=== PATIENT | female | born 1985 | race Caucasian/White ===

== ENCOUNTER 2016-11-02 18:28 | Emergency (ER) | payer MEDICAID, OTHER ==
[2016-11-02] MEDS ORDERED: NORMAL SALINE 1000 ML 1,000 ML IV PRN (22:14)
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
[2016-11-02 22:41] LABS: APPEARANCE,URINE CLOUDY; BILIRUBIN,URINE NEGATIVE (NEGATIVE); GLUCOSE, URINE NEGATIVE (NEGATIVE); KETONES,URINE NEGATIVE (NEGATIVE); LEUKOCYTE ESTERASE,URINE TRACE (NEGATIVE); NITRITE,URINE NEGATIVE (NEGATIVE); PROTEIN,URINE NEGATIVE (NEGATIVE); URINE SPECIFIC GRAVITY 1.019
[2016-11-02 23:03] LABS: ABSOLUTE BASOPHILS # (AUTO) 0.1 10^3/uL (0.0-0.2); ABSOLUTE EOSINOPHILS # (AUTO) 0.1 10^3/uL (0.0-0.6); ABSOLUTE LYMPHOCYTES (AUTO) 2.7 10^3/uL (0.5-4.7); ABSOLUTE MONOCYTES (AUTO) 0.8 10^3/uL (0.1-1.4); ABSOLUTE NEUT (AUTO) 6.8 10^3/uL (1.7-8.2); BASOPHILS % (AUTO) 0.7 % (0-2); EOSINOPHILS % (AUTO) 0.9 % (0-6); HEMATOCRIT 43.4 % (36.0-47.0); HEMOGLOBIN 14.8 g/dL (12.0-15.5); LYMPHOCYTES % (AUTO) 25.7 % (13-45); MEAN CORPUSCULAR HEMOGLOBIN 30.8 pg (27.0-33.4); MEAN CORPUSCULAR HGB CONC 34.1 g/dL (32.0-36.0); MEAN CORPUSCULAR VOLUME 90 fl (80-97); RED BLOOD COUNT 4.81 10^6/uL (3.72-5.28); RED CELL DISTRIBUTION WIDTH 13.5 % (11.5-14.0); SEGMENTED NEUTROPHILS % (AUTO) 64.7 % (42-78); WHITE BLOOD COUNT 10.4 10^3/uL (4.0-10.5)
[2016-11-02 23:25] LABS: ALANINE AMINOTRANSFERASE 26 U/L (9-52); ALBUMIN 4.2 g/dL (3.5-5.0); ALKALINE PHOSPHATASE 50 U/L (38-126); ANION GAP 11 (5-19); ASPARTATE AMINO TRANSFERASE 20 U/L (14-36); BILIRUBIN,TOTAL 0.4 mg/dL (0.2-1.3); BLOOD UREA NITROGEN 13 mg/dL (7-20); CALCIUM 9.4 mg/dL (8.4-10.2); CARBON DIOXIDE 25 mmol/L (22-30); CHLORIDE 106 mmol/L (98-107); CREATININE RESULT 0.69 mg/dL (0.52-1.25); GLUCOSE 78 mg/dL (75-110); POTASSIUM 3.8 mmol/L (3.6-5.0); SODIUM 141.8 mmol/L (137-145); TOTAL PROTEIN 6.6 g/dL (6.3-8.2)
[2016-11-02] MEDS ORDERED: KETOROLAC TROMETHAMINE INJ/PF 30 MG/1 ML SDV IV ONE (23:32)
[2016-11-03 01:19] VITALS: BP 115/88
== END 2016-11-03 01:19 | disposition home or self-care (01) ==
LOC: ER 18:28
DX: N39.0 Urinary tract infection, site not specified (principal); R10.9 Unspecified abdominal pain; I10 Essential (primary) hypertension; J45.909 Unspecified asthma, uncomplicated; F17.200 Nicotine dependence, unspecified, uncomplicated
CPT/HCPCS: 99284; 96361; 96374; 36415; 85025; 81025; 80053; 81001; 76380; J1885; J7030

== ENCOUNTER 2017-01-25 14:07 | Emergency (ER) | payer MEDICAID ==
[2017-01-25 14:23] VITALS: BP 94/76
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
[2017-01-25 15:24] LABS: ABSOLUTE EOSINOPHILS # (AUTO) 0.1 10^3/uL (0.0-0.6); ABSOLUTE LYMPHOCYTES (AUTO) 2.6 10^3/uL (0.5-4.7); ABSOLUTE MONOCYTES (AUTO) 0.6 10^3/uL (0.1-1.4); ABSOLUTE NEUT (AUTO) 4.6 10^3/uL (1.7-8.2); BASOPHILS % (AUTO) 0.6 % (0-2); EOSINOPHILS % (AUTO) 1.7 % (0-6); HEMATOCRIT 44.5 % (36.0-47.0); HEMOGLOBIN 15.7 g/dL (12.0-15.5); HGB HCT DIFFERENCE 2.6; LYMPHOCYTES % (AUTO) 32.3 % (13-45); MEAN CORPUSCULAR HEMOGLOBIN 31.3 pg (27.0-33.4); MEAN CORPUSCULAR HGB CONC 35.2 g/dL (32.0-36.0); MEAN CORPUSCULAR VOLUME 89 fl (80-97); MONOCYTES % (AUTO) 7.7 % (3-13); RED CELL DISTRIBUTION WIDTH 13.1 % (11.5-14.0); SEGMENTED NEUTROPHILS % (AUTO) 57.7 % (42-78); WHITE BLOOD COUNT 7.9 10^3/uL (4.0-10.5)
[2017-01-25 15:28] LABS: APPEARANCE,URINE CLOUDY; BILIRUBIN,URINE SMALL (NEGATIVE); GLUCOSE, URINE NEGATIVE (NEGATIVE); KETONES,URINE NEGATIVE (NEGATIVE); LEUKOCYTE ESTERASE,URINE TRACE (NEGATIVE); NITRITE,URINE NEGATIVE (NEGATIVE); PROTEIN,URINE 30 mg/dL (NEGATIVE); URINE SPECIFIC GRAVITY 1.032
[2017-01-25 15:34] LABS: ALANINE AMINOTRANSFERASE 34 U/L (9-52); ALBUMIN 4.4 g/dL (3.5-5.0); ALKALINE PHOSPHATASE 61 U/L (38-126); ANION GAP 11 (5-19); ASPARTATE AMINO TRANSFERASE 24 U/L (14-36); BILIRUBIN,DIRECT 0.1 mg/dL (0.0-0.4); BILIRUBIN,TOTAL 0.5 mg/dL (0.2-1.3); BLOOD UREA NITROGEN 13 mg/dL (7-20); CALCIUM 10.1 mg/dL (8.4-10.2); CARBON DIOXIDE 30 mmol/L (22-30); CHLORIDE 103 mmol/L (98-107); CREATININE RESULT 0.92 mg/dL (0.52-1.25); GLUCOSE 78 mg/dL (75-110); LIPASE 145.1 U/L (23-300); POTASSIUM 4.2 mmol/L (3.6-5.0); SODIUM 144.2 mmol/L (137-145); TOTAL PROTEIN 7.3 g/dL (6.3-8.2)
[2017-01-25] MEDS ORDERED: ONDANSETRON 4 MG TAB.RAPDIS PO ONE (16:56)
[2017-01-25] MEDS ORDERED: ACETAMINOPHEN 325 MG TABLET PO ONE (16:56)
== END 2017-01-25 18:55 | disposition left against medical advice (07) ==
LOC: ER 14:07
DX: Z53.9 Procedure and treatment not carried out, unspecified reason (principal); R10.9 Unspecified abdominal pain
CPT/HCPCS: 99281; 36415; 84702; 83690; 85025; 80053; 81001; J3490; S0119

== ENCOUNTER 2017-01-30 15:36 | Emergency (ER) | payer MEDICAID ==
[2017-01-30] MEDS ORDERED: LIDOCAINE 5% (700 MG) TRANSDERMAL ADH..PATCH TP ONE (16:41)
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
[2017-01-30 17:06] LABS: ABSOLUTE EOSINOPHILS # (AUTO) 0.1 10^3/uL (0.0-0.6); ABSOLUTE LYMPHOCYTES (AUTO) 2.6 10^3/uL (0.5-4.7); ABSOLUTE MONOCYTES (AUTO) 0.7 10^3/uL (0.1-1.4); ABSOLUTE NEUT (AUTO) 4.1 10^3/uL (1.7-8.2); BASOPHILS % (AUTO) 0.6 % (0-2); EOSINOPHILS % (AUTO) 1.5 % (0-6); HEMATOCRIT 43.9 % (36.0-47.0); HEMOGLOBIN 14.9 g/dL (12.0-15.5); HGB HCT DIFFERENCE 0.8; LYMPHOCYTES % (AUTO) 34.9 % (13-45); MEAN CORPUSCULAR HEMOGLOBIN 30.3 pg (27.0-33.4); MEAN CORPUSCULAR HGB CONC 33.9 g/dL (32.0-36.0); MEAN CORPUSCULAR VOLUME 90 fl (80-97); MONOCYTES % (AUTO) 9.4 % (3-13); RED CELL DISTRIBUTION WIDTH 13.5 % (11.5-14.0); SEGMENTED NEUTROPHILS % (AUTO) 53.6 % (42-78); WHITE BLOOD COUNT 7.6 10^3/uL (4.0-10.5)
[2017-01-30 17:22] LABS: ALANINE AMINOTRANSFERASE 29 U/L (9-52); ALBUMIN 4.3 g/dL (3.5-5.0); ALKALINE PHOSPHATASE 48 U/L (38-126); ANION GAP 12 (5-19); ASPARTATE AMINO TRANSFERASE 22 U/L (14-36); BILIRUBIN,DIRECT 0.2 mg/dL (0.0-0.4); BILIRUBIN,TOTAL 0.5 mg/dL (0.2-1.3); BLOOD UREA NITROGEN 12 mg/dL (7-20); CALCIUM 9.5 mg/dL (8.4-10.2); CARBON DIOXIDE 25 mmol/L (22-30); CHLORIDE 109 mmol/L (98-107); CREATININE RESULT 0.68 mg/dL (0.52-1.25); GLUCOSE 81 mg/dL (75-110); LIPASE 216.2 U/L (23-300); MAGNESIUM 2.2 mg/dL (1.6-2.3); POTASSIUM 4.3 mmol/L (3.6-5.0); SODIUM 145.7 mmol/L (137-145)
[2017-01-30] MEDS ORDERED: OXYCODONE-ACETAMINOPHEN 5-325 MG TABLET PO ONE (18:34)
[2017-01-30] MEDS ORDERED: KETOROLAC TROMETHAMINE 60 MG/2 ML SDV IM ONE (18:34)
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
[2017-01-30 18:57] VITALS: BP 115/74
== END 2017-01-30 19:00 | disposition home or self-care (01) ==
LOC: ER 15:36
DX: M25.551 Pain in right hip (principal); G89.29 Other chronic pain; M54.5 Low back pain
CPT/HCPCS: 99284; 96372; 36415; 83690; 83735; 84703; 85025; 80053; J1885; J3490

== ENCOUNTER 2017-06-22 07:09 | Emergency (ER) | payer MEDICAID ==
[2017-06-22 07:28] VITALS: BP 104/67
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
== END 2017-06-22 07:45 | disposition home or self-care (01) ==
LOC: ER 07:09
DX: O99.519 Diseases of the respiratory system complicating pregnancy, unspecified trimester (principal); J06.9 Acute upper respiratory infection, unspecified; B97.89 Other viral agents as the cause of diseases classified elsewhere; J02.9 Acute pharyngitis, unspecified; J34.89 Other specified disorders of nose and nasal sinuses; O99.619 Diseases of the digestive system complicating pregnancy, unspecified trimester; K12.0 Recurrent oral aphthae; O26.899 Other specified pregnancy related conditions, unspecified trimester; R09.81 Nasal congestion; Z3A.00 Weeks of gestation of pregnancy not specified
CPT/HCPCS: 99282

== ENCOUNTER 2017-08-03 14:36 | Outpatient (CLI) | payer MEDICAID ==
[2017-08-03 15:52] LABS: APPEARANCE,URINE SLIGHTLY-CLOUDY; BILIRUBIN,URINE NEGATIVE (NEGATIVE); GLUCOSE, URINE NEGATIVE (NEGATIVE); KETONES,URINE NEGATIVE (NEGATIVE); LEUKOCYTE ESTERASE,URINE NEGATIVE (NEGATIVE); NITRITE,URINE NEGATIVE (NEGATIVE); PROTEIN,URINE NEGATIVE (NEGATIVE); URINE SPECIFIC GRAVITY 1.013; UROBILINOGEN,URINE NEGATIVE mg/dL (<2.0)
[2017-08-03 16:11] LABS: URINE BARBITURATES SCREEN NEGATIVE; URINE METHADONE SCREEN NEGATIVE; URINE OPIATES LOW NEGATIVE; URINE PHENCYCLIDINE SCREEN NEGATIVE
--- NOTE | 2017-08-03 17:00 | RADIOLOGY REPORT (SQ) ---
EXAM DESCRIPTION: U/S OB LIMITED COMPLETED DATE/TIME: 08/03/2017 4:49 pm REASON FOR STUDY: Cervical length, 33+ 3 weeks, ? labor COMPARISON: None. TECHNIQUE: Limited transabdominal grayscale ultrasound for evaluation of specific requested obstetri michael parameters. LIMITATIONS: None. FINDINGS: Very mild upper cervical funneling at the internal os. Remainder of the cervix is closed, 3.2 cm in length. Single fetus breech orientation, cardiac activity 125 beats per minute IMPRESSION: Very mild upper cervical funneling. Cervix 3.2 cm in length Trimester of : Third trimester - 28 weeks to delivery. TECHNICAL DOCUMENTATION: JOB ID: [id number] [employer]- All Rights Reserved
[2017-08-03 17:28] LABS: CHLAM PCR NOT DETECTED (NOT DETECT)
== END 2017-08-03 17:48 | disposition home or self-care (01) ==
LOC: LC 14:36
PROVIDERS: ATTEND Student in an Organized Health Care Education/Training Program
PROC: 4A1HXCZ Monitoring of Products of Conception, Cardiac Rate, External Approach (ICD-10-PCS; principal; 2017-08-03)
DX: O47.03 False labor before 37 completed weeks of gestation, third trimester (principal); Z3A.33 33 weeks gestation of pregnancy
CPT/HCPCS: 59025; 76815; 80307; 81001; 82731; 87081; 87086; 87210; 87491; 87591

== ENCOUNTER 2017-08-30 13:46 | Outpatient (CLI) | payer MEDICAID ==
--- NOTE | 2017-08-30 13:54 | Non Stress Test Report ---
Non Stress Test Datetime Report Generated by CPN: 08/30/2017 13:54 DEMOGRAPHIC EGA NST: 29.0 INDICATION Indication for Study: Other Indication for Study (NST) Other: Labor check MONITORING Monitor Explained: Monitor Explained; Test Explained; Patient Verbalized Understanding Time on Monitor: 08/03/2017 16:45 Time off Monitor: 08/03/2017 17:41 NST Duration: 56 NST INTERVENTIONS NST Interventions: PO Hydration Physician Notified NST: K. Willingham MD BABY A: [id number] BABY A Movement : Present Contraction Frequency : 0 FHR Baseline : 130 Accelerations : 15X15 Decelerations : None Variability : Moderate 6-25bpm NST Review: Meets Criteria for Reactive NST NST Review and Verified By : Ulices Bellavance RNC NST Results: Reactive NST REPORT Report Trigger: Send Report
[2017-08-30 14:19] LABS: APPEARANCE,URINE CLEAR; BILIRUBIN,URINE NEGATIVE (NEGATIVE); GLUCOSE, URINE NEGATIVE (NEGATIVE); KETONES,URINE 20 mg/dL (NEGATIVE); LEUKOCYTE ESTERASE,URINE NEGATIVE (NEGATIVE); NITRITE,URINE NEGATIVE (NEGATIVE); PROTEIN,URINE NEGATIVE (NEGATIVE); URINE SPECIFIC GRAVITY 1.004; UROBILINOGEN,URINE NEGATIVE mg/dL (<2.0)
[2017-08-30 15:06] LABS: AMNISURE (ROM) NEGATIVE (NEGATIVE)
[2017-08-30 15:07] LABS: URINE BARBITURATES SCREEN NEGATIVE; URINE METHADONE SCREEN NEGATIVE; URINE OPIATES LOW NEGATIVE; URINE PHENCYCLIDINE SCREEN NEGATIVE
--- NOTE | 2017-08-30 15:36 | Non Stress Test Report ---
Non Stress Test Datetime Report Generated by CPN: 08/30/2017 15:36 DEMOGRAPHIC EGA NST: 32.6 INDICATION Indication for Study: Ordered by Provider MONITORING Monitor Explained: Monitor Explained; Test Explained; Patient Verbalized Understanding Time on Monitor: 08/30/2017 14:11 Time off Monitor: 08/30/2017 14:49 NST Duration: 38 NST INTERVENTIONS NST Interventions: PO Hydration; Reposition Patient Physician Notified NST: P Garrett CNM BABY A Movement : Present Contraction Frequency : Irritability FHR Baseline : 125 Accelerations : 15X15 Decelerations : None Variability : Moderate 6-25bpm NST Review: Meets Criteria for Reactive NST NST Review and Verified By : Amarjit Self RNC NST Results: Reactive NST REPORT Report Trigger: Send Report
== END 2017-08-30 15:40 | disposition home or self-care (01) ==
LOC: LC 13:46
PROVIDERS: ATTEND Obstetrics & Gynecology
PROC: 4A1HXCZ Monitoring of Products of Conception, Cardiac Rate, External Approach (ICD-10-PCS; principal; 2017-08-30)
DX: O47.03 False labor before 37 completed weeks of gestation, third trimester (principal); Z3A.32 32 weeks gestation of pregnancy
CPT/HCPCS: 59025; 80307; 81001; 84112

== ENCOUNTER 2017-10-02 00:54 | Outpatient (CLI) | payer MEDICAID ==
[2017-10-02 01:36] LABS: APPEARANCE,URINE SLIGHTLY-CLOUDY; BILIRUBIN,URINE NEGATIVE (NEGATIVE); GLUCOSE, URINE NEGATIVE (NEGATIVE); KETONES,URINE NEGATIVE (NEGATIVE); LEUKOCYTE ESTERASE,URINE NEGATIVE (NEGATIVE); NITRITE,URINE NEGATIVE (NEGATIVE); PROTEIN,URINE NEGATIVE (NEGATIVE); URINE SPECIFIC GRAVITY 1.005; UROBILINOGEN,URINE NEGATIVE mg/dL (<2.0)
[2017-10-02 01:52] LABS: URINE BARBITURATES SCREEN NEGATIVE; URINE METHADONE SCREEN NEGATIVE; URINE PHENCYCLIDINE SCREEN NEGATIVE
[2017-10-02 01:54] LABS: URINE OPIATES LOW UNCONFIRMED POSITIVE
--- NOTE | 2017-10-02 03:49 | Non Stress Test Report ---
Non Stress Test Datetime Report Generated by CPN: 10/02/2017 03:49 DEMOGRAPHIC EGA NST: 37.4 INDICATION Indication for Study: Ordered by Provider URINE RESULTS Urine Protein, NST: Negative Urine Ketones - NST: Negative Urine Glucose - NST: Negative Urine Blood - NST: Positive MONITORING Monitor Explained: Monitor Explained; Test Explained; Patient Verbalized Understanding Time on Monitor: 10/02/2017 01:11 Time off Monitor: 10/02/2017 02:17 NST Duration: 66 NST INTERVENTIONS NST Interventions: PO Hydration Physician Notified NST: [place] BABY A: [id number] BABY A Movement : Present Contraction Frequency : occ FHR Baseline : 120 Accelerations : 15X15 Decelerations : None Variability : Moderate 6-25bpm NST Review: Meets Criteria for Reactive NST NST Review and Verified By : Magda Diaz RN NST Results: Reactive NST REPORT Report Trigger: Send Report
== END 2017-10-02 02:28 | disposition home or self-care (01) ==
LOC: LC 00:54
PROVIDERS: ATTEND Obstetrics & Gynecology
PROC: 4A1HXCZ Monitoring of Products of Conception, Cardiac Rate, External Approach (ICD-10-PCS; principal; 2017-10-02)
DX: O46.93 Antepartum hemorrhage, unspecified, third trimester (principal); O47.1 False labor at or after 37 completed weeks of gestation; Z3A.37 37 weeks gestation of pregnancy
CPT/HCPCS: 59025; 36415; 81005; 80307; G6056; 80361

== ENCOUNTER 2017-10-20 12:36 | Outpatient (CLI) | payer MEDICAID ==
--- NOTE | 2017-10-20 13:58 | Non Stress Test Report ---
Non Stress Test Datetime Report Generated by CPN: 10/20/2017 13:58 DEMOGRAPHIC EGA NST: 40.1 INDICATION Indication for Study: Ordered by Provider Indication for Study (NST) Other: Repeat MONITORING Monitor Explained: Monitor Explained; Test Explained; Patient Verbalized Understanding Time on Monitor: 10/20/2017 12:50 Time off Monitor: 10/20/2017 13:28 NST Duration: 38 NST INTERVENTIONS NST Interventions: PO Hydration BABY A: [id number] BABY A Movement : Present Contraction Frequency : none FHR Baseline : 140 Accelerations : 15X15 Decelerations : None Variability : Moderate 6-25bpm NST Review: Meets Criteria for Reactive NST NST Review and Verified By : Sara Camp RNC NST Results: Reactive NST REPORT Report Trigger: Send Report
== END 2017-10-20 15:27 | disposition home or self-care (01) ==
LOC: LC 12:36
PROVIDERS: ATTEND Student in an Organized Health Care Education/Training Program
PROC: 4A1HXCZ Monitoring of Products of Conception, Cardiac Rate, External Approach (ICD-10-PCS; principal; 2017-10-20)
DX: O47.1 False labor at or after 37 completed weeks of gestation (principal); O48.0 Post-term pregnancy; Z3A.40 40 weeks gestation of pregnancy
CPT/HCPCS: 59025

== ENCOUNTER 2017-10-26 11:06 | Inpatient (IN) | payer MEDICAID ==
[2017-10-26 11:41] LABS: AMNISURE (ROM) POSITIVE (NEGATIVE); APPEARANCE,URINE SLIGHTLY-CLOUDY; BILIRUBIN,URINE NEGATIVE (NEGATIVE); COLOR,URINE YELLOW; GLUCOSE, URINE NEGATIVE (NEGATIVE); KETONES,URINE NEGATIVE (NEGATIVE); LEUKOCYTE ESTERASE,URINE NEGATIVE (NEGATIVE); NITRITE,URINE NEGATIVE (NEGATIVE); PROTEIN,URINE NEGATIVE (NEGATIVE); URINE SPECIFIC GRAVITY 1.014; UROBILINOGEN,URINE NEGATIVE mg/dL (<2.0)
[2017-10-26 11:56] LABS: URINE AMPHETAMINES SCREEN NEGATIVE; URINE BARBITURATES SCREEN NEGATIVE; URINE COCAINE SCREEN NEGATIVE; URINE MARIJUANA (THC) SCREEN NEGATIVE; URINE METHADONE SCREEN NEGATIVE; URINE PHENCYCLIDINE SCREEN NEGATIVE
[2017-10-26] MEDS ORDERED: MAG HYDROX/AL HYDROX/SIMETH SUSP 30 ML UDCUP PO ONE (12:16)
[2017-10-26] MEDS ORDERED: MAG HYDROX/AL HYDROX/SIMETH SUSP 30 ML UDCUP ONE (12:18)
[2017-10-26] MEDS ORDERED: RINGERS SOLUTION,LACTATED 1,000 ML IV PRN (12:21)
[2017-10-26] MEDS ORDERED: OXYTOCIN/NORMAL SALINE 20 UNIT/1,000 ML RTUINJ IV PRN ×2 (12:21→16:33)
[2017-10-26 12:26] LABS: URINE BENZODIAZEPINES SCREEN UNCONFIRMED POSITIVE
[2017-10-26 12:41] LABS: ABSOLUTE LYMPHOCYTES (AUTO) 2.1 10^3/uL (0.5-4.7); ABSOLUTE MONOCYTES (AUTO) 0.7 10^3/uL (0.1-1.4); ABSOLUTE NEUT (AUTO) 9.3 10^3/uL (1.7-8.2); BASOPHILS % (AUTO) 0.3 % (0-2); EOSINOPHILS % (AUTO) 0.3 % (0-6); HEMATOCRIT 34.7 % (36.0-47.0); HEMOGLOBIN 11.3 g/dL (12.0-15.5); LYMPHOCYTES % (AUTO) 17.5 % (13-45); MEAN CORPUSCULAR HEMOGLOBIN 27.2 pg (27.0-33.4); MEAN CORPUSCULAR HGB CONC 32.5 g/dL (32.0-36.0); MEAN CORPUSCULAR VOLUME 84 fl (80-97); MONOCYTES % (AUTO) 5.8 % (3-13); PLATELET COUNT 283 10^3/uL (150-450); RED BLOOD COUNT 4.15 10^6/uL (3.72-5.28); RED CELL DISTRIBUTION WIDTH 14.2 % (11.5-14.0); SEGMENTED NEUTROPHILS % (AUTO) 76.1 % (42-78); TOTAL CELLS COUNTED % (AUTO) 100 %; WHITE BLOOD COUNT 12.3 10^3/uL (4.0-10.5)
[2017-10-26] MEDS ORDERED: OXYTOCIN/NORMAL SALINE 0 UNIT/0 ML RTUINJ ONE (12:57)
[2017-10-26] MEDS ORDERED: NORMAL SALINE 250 ML IV PRN (13:07)
[2017-10-26] MEDS ORDERED: OXYTOCIN/NORMAL SALINE 20 UNIT/1,000 ML RTUINJ ONE (15:05)
[2017-10-26] MEDS ORDERED: MISOPROSTOL 0.2 MG TABLET ONE (15:05)
[2017-10-26] MEDS ORDERED: LIDOCAINE 1% INJ-PF (10 MG/ML) 30 ML SDV ONE (15:05)
[2017-10-26] MEDS ORDERED: BUPIVACAINE HCL 0.25 % INJ/PF (2.5 MG/1 ML) 30 ML VIAL ONE (15:14)
[2017-10-26] MEDS ORDERED: FENTANYL/BUPIVACAINE/NS/PF 200 MCG/100 ML RTUINJ EPI ONE (15:14)
[2017-10-26] MEDS ORDERED: EPHEDRINE SULFATE INJ 50 MG/1 ML AMPULE ONE (15:14)
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
[2017-10-26] MEDS ORDERED: DIBUCAINE 1% OINTMENT 28 GM TP PRN (16:33)
[2017-10-26] MEDS ORDERED: NA PHOS,M-B/NA PHOS,DI-BA (ADULT) 133 ML ENEMA PR PRN (16:33)
[2017-10-26] MEDS ORDERED: BENZOCAINE/MENTHOL AEROSOL SPRAY 56 ML TOP PRN (16:33)
[2017-10-26] MEDS ORDERED: ACETAMINOPHEN 650 MG SUPP.RECT PR PRN (16:33)
[2017-10-26] MEDS ORDERED: DIPH/PERTUSS(ACELL)/TETANUS VAC/PF 0.5 ML SYR (>=10YO) IM PRN (16:33)
[2017-10-26] MEDS ORDERED: PROMETHAZINE HCL 25 MG TABLET PO PRN (16:33)
[2017-10-26] MEDS ORDERED: PSEUDOEPHEDRINE HCL 30 MG TABLET PO PRN (16:33)
[2017-10-26] MEDS ORDERED: GLYCERIN/WITCH HAZEL LEAF 1 EACH MED..PAD TP PRN (16:33)
[2017-10-26] MEDS ORDERED: MAGNESIUM HYDROXIDE SUSP 30 ML UDCUP PO PRN (16:33)
[2017-10-26] MEDS ORDERED: PROMETHAZINE HCL INJ 25 MG/1 ML VIAL IV PRN (16:33)
[2017-10-26] MEDS ORDERED: MEASLES,MUMPS&RUBELLA VACC/PF 0.5 ML VIAL SUBCUT PRN (16:33)
[2017-10-26] MEDS ORDERED: ACETAMINOPHEN WITH CODEINE #3 TABLET PO PRN (16:33)
[2017-10-26] MEDS ORDERED: MISOPROSTOL 0.2 MG TABLET PR PRN (16:33)
[2017-10-26] MEDS ORDERED: PROMETHAZINE HCL 25 MG SUPP.RECT PR PRN (16:33)
[2017-10-26] MEDS ORDERED: DIPHENHYDRAMINE HCL 25 MG CAPSULE PO PRN (16:33)
--- NOTE | 2017-10-26 18:06 | Delivery Summary ---
Del Sum A-C Datetime Report Generated by CPN: 10/26/2017 18:05 DELIVERY PERSONNEL DELIVERY PERSONNEL: [id number] Delivery Doctor:: Olesya Burton CNM Labor and Delivery Nurse:: Stephanie Valdez RNbreakfast host Nurse:: Cynthia Delgado, ATTILAC MATERNAL INFORMATION Delivery Anesthesia: Epidural Medications After Delivery: Pitocin Bolus-Please Comment; Cytotec 600mcg Per Rectum/Vagina Estimated Blood Loss (ml): 400 Maternal Complications: None Provider Comments: Started pushing after epidural, not pushing well, after delivery of head, nuchal cord reduced, tight shoulders, and poor maternal effort. [place] and suprapubic pressure applied with delivery of shoulders and infant. Placed on pt abd, skin to skin, cord clamped and cut after 2 minutes. EBL 400cc, FFFM. cytotec 600 mcg via rectum. Baby and mom remain in recovery in stable condition, moving all extremeties, no lateral traction with delivery. Dr. Armenta present for delivery LABOR SUMMARY EDC: 10/19/2017 00:00 No. Babies in Womb: 1 Attempted: No Labor Anesthesia: Epidural LABOR INFORMATION Reason for Induction: Not Applicable Onset of Labor: 10/26/2017 14:59 Complete Dilatation: 10/26/2017 16:02 Oxytocin: Augmentation Group B Beta Strep: negative Antibiotics # of Doses: N/A Antibiotics Time of Last Dose: N/A Name of Antibiotic Given: N/A Steroids Given: None Reason Steroids Not Administered: Not Applicable MEMBRANES Membranes Rupture Method: Spontaneous Rupture of Membranes: 10/26/2017 05:00 Length of Rupture (hr): 11.35 Amniotic Fluid Color: Clear (Annotations: per pt.) Amniotic Fluid Amount: Moderate Amniotic Fluid Odor: Normal STAGES OF LABOR Stage 1 hr: 1 Stage 1 min: 3 Stage 2 hr: 0 Stage 2 min: 19 Stage 3 hr: 0 Stage 3 min: 4 Total Time in Labor hr: 1 Total Time in Labor min: 26 VAGINAL DELIVERY Episiotomy: None Laceration #1: None Laceration Extension #1: N/A Laceration Repair: Not Applicable Sponge Count Correct: N/A Sharps Count Correct: N/A BABY A INFORMATION Delivery Date/Time: 10/26/2017 16:21 Method of Delivery: Vaginal Born in Route : No : N/A Forceps: N/A Vacuum Extraction: N/A Shoulder Dystocia : No PRESENTATION/POSITION BABY A Presentation: Cephalic Cephalic Presentation: Vertex Breech Presentation: N/A PLACENTA INFORMATION BABY A Placenta Delivery Time : 10/26/2017 16:25 Placenta Method of Delivery: Spontaneous Placenta Status: Delivered SCORES BABY A Heart Rate 1 min: >100 bpm Resp Effort 1 min: Good Cry Reflex Irritability 1 min: Cough or Sneeze or Pulls Away Muscle Tone 1 min: Some Flexion of Extremities Color 1 min: Body [place], Extremities Blue Resuscitation Effort 1 min: Tactile Stimulation SCORE 1 MIN: 8 Heart Rate 5 min: >100 bpm Resp Effort 5 min: Good Cry Reflex Irritability 5 min: Cough or Sneeze or Pulls Away Muscle Tone 5 min: Active Motion Color 5 min: Body [place], Extremities Blue SCORE 5 MIN: 9 INFORMATION BABY A Gestational Age at Delivery: 41.0 Gestational Status: Late Term- 41- 41.6 Weeks Outcome : Liveborn Infant Condition : Stable Sex: Male IDENTIFICATION BABY A Infant Verification Date/Time: 10/26/2017 16:37 ID Band Number: [id number] Mother's Name Verified: Yes Infant RN Verifying : R Lio RN/ D [place] RNC WEIGHT/LENGTH BABY A Birthweight (gm): 4250 Infant Weight (lb): 9 Weight (oz): 6 Infant Length (in): 21.50 Length (cm): 54.61 CORD INFORMATION BABY A No. Cord Vessels: 3 Nuchal Cord : Around Neck x1, Loose Suction: Mouth; Nose ASSESSMENT BABY A Complications: None Physical Findings at Delivery: Within Normal Limits Infant Respirations: Appears Normal Skin to Skin: Yes Skin to Skin Time (min): 60 Drive Worker/ALS Called : No Care By: dheeraj delgado rn Transferred To: Remains with Mother
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
[2017-10-26] MEDS: DOCUSATE SODIUM 100 MG CAPSULE PO SCH (18:46)
[2017-10-26] MEDS: FERROUS SULFATE 325 MG TABLET PO SCH (18:46)
[2017-10-26] MEDS: IBUPROFEN 800 MG TABLET PO SCH (21:58)
[2017-10-26] MEDS: FAMOTIDINE 20 MG TABLET PO SCH (21:59)
[2017-10-26] MEDS: ACETAMINOPHEN WITH CODEINE #3 TABLET PO PRN (22:54)
[2017-10-27] MEDS: IBUPROFEN 800 MG TABLET PO SCH ×3 (05:23→21:46)
[2017-10-27 06:54] LABS: HEMATOCRIT 31.6 % (36.0-47.0); HEMOGLOBIN 10.4 g/dL (12.0-15.5); MEAN CORPUSCULAR HEMOGLOBIN 27.5 pg (27.0-33.4); MEAN CORPUSCULAR VOLUME 83 fl (80-97); PLATELET COUNT 240 10^3/uL (150-450); RED BLOOD COUNT 3.79 10^6/uL (3.72-5.28); RED CELL DISTRIBUTION WIDTH 14.1 % (11.5-14.0); WHITE BLOOD COUNT 13.6 10^3/uL (4.0-10.5)
[2017-10-27] MEDS: ACETAMINOPHEN WITH CODEINE #3 TABLET PO PRN (08:32)
--- NOTE | 2017-10-27 10:18 | PDOC PROGRESS REPORT ---
Subjective Progress Note for:: 10/27/17 Subjective:: She has some left hip pain. Reason For Visit: ADMIT FOR LABOR She is delivered and has some left hip pain. Physical Exam - Physical Exam Vital Signs: Temp Pulse Resp BP Pulse Ox 98.1 F 68 15 114/73 99 10/27/17 07:38 10/27/17 07:38 10/27/17 07:38 10/27/17 07:38 10/27/17 07:38 Intake & Output 10/26/17 10/27/17 10/28/17 06:59 06:59 06:59 Weight 97.8 kg General appearance: PRESENT: no acute distress, well-developed, well-nourished Head exam: PRESENT: atraumatic, normocephalic Extremities exam: PRESENT: full ROM. ABSENT: calf tenderness, clubbing, pedal edema Result Laboratory Results: 10/27/17 06:39 10/26/17 10/26/17 10/26/17 11:32 12:18 12:18 WBC 12.3 H RBC 4.15 Hgb 11.3 L Hct 34.7 L MCV 84 MCH 27.2 MCHC 32.5 RDW 14.2 H Plt Count 283 Seg Neutrophils % 76.1 Lymphocytes % 17.5 Monocytes % 5.8 Eosinophils % 0.3 Basophils % 0.3 Absolute Neutrophils 9.3 H Absolute Lymphocytes 2.1 Absolute Monocytes 0.7 Absolute Eosinophils 0.0 Absolute Basophils 0.0 Urine Color YELLOW Urine Appearance SLIGHTLY-CLOUDY Urine pH 7.0 Ur Specific [place] 1.014 Urine Protein NEGATIVE Urine Glucose (UA) NEGATIVE Urine Ketones NEGATIVE Urine Blood NEGATIVE Urine Nitrite NEGATIVE Ur Leukocyte Esterase NEGATIVE Blood Type O POSITIVE Antibody Screen NEGATIVE 10/27/17 06:39 WBC 13.6 H RBC 3.79 Hgb 10.4 L Hct 31.6 L MCV 83 MCH 27.5 MCHC 33.0 RDW 14.1 H Plt Count 240 Seg Neutrophils % Lymphocytes % Monocytes % Eosinophils % Basophils % Absolute Neutrophils Absolute Lymphocytes Absolute Monocytes Absolute Eosinophils Absolute Basophils Urine Color Urine Appearance Urine pH Ur Specific [place] Urine Protein Urine Glucose (UA) Urine Ketones Urine Blood Urine Nitrite Ur Leukocyte Esterase Blood Type Antibody Screen Assessment & Plan - Diagnosis (1) Hip pain Qualifiers: Laterality: right Qualified Code(s): M25.551 - Pain in right hip Is this a current diagnosis for this admission?: Yes Plan: Pain medication, ortho consult. (2) Vaginal delivery Is this a current diagnosis for this admission?: Yes Plan: Home tomorrow. - Plan Summary Plan Summary: Continue care.
[2017-10-27] MEDS: SENNOSIDES/DOCUSATE 8.6-50 MG 1 EACH TABLET PO SCH (10:34)
[2017-10-27] MEDS: PRENATAL VITAMIN W DHA CAPSULE PO SCH (10:34)
[2017-10-27] MEDS: FERROUS SULFATE 325 MG TABLET PO SCH ×2 (10:35→18:34)
[2017-10-27] MEDS: FAMOTIDINE 20 MG TABLET PO SCH ×2 (10:35→21:45)
[2017-10-27] MEDS: DOCUSATE SODIUM 100 MG CAPSULE PO SCH ×2 (10:35→18:34)
[2017-10-27] MEDS: OXYCODONE-ACETAMINOPHEN 5-325 MG TABLET PO PRN ×2 (13:18→19:41)
--- NOTE | 2017-10-27 13:47 | RADIOLOGY REPORT (SQ) ---
EXAM DESCRIPTION: HIP LEFT AP/LATERAL COMPLETED DATE/TIME: 10/27/2017 1:12 pm REASON FOR STUDY: LEFT hip pain COMPARISON: None. NUMBER OF VIEWS: Two views. TECHNIQUE: AP pelvis and additional frog-leg view of the left hip. LIMITATIONS: None. FINDINGS: MINERALIZATION: Normal. LEFT HIP: No fracture or dislocation. No worrisome bone lesions. No contour deformity. No joint spa ce narrowing. RIGHT HIP: No fracture or dislocation. No worrisome bone lesions. PUBIS AND ISCHIUM: No fracture. PELVIS: No fracture. SACRUM: No fracture or dislocation. No worrisome bone lesions. LOWER LUMBAR SPINE: No fracture or dislocation. No worrisome bone lesions. No significant disc disea se. SOFT TISSUES: No findings. OTHER: No other significant finding. IMPRESSION: NEGATIVE STUDY OF THE LEFT HIP AND PELVIS. NO EXPLANATION FOR PAIN. TECHNICAL DOCUMENTATION: JOB ID: [id number] [employer]- All Rights Reserved
--- NOTE | 2017-10-27 21:06 | PDOC CONSULTATION ---
Consultation Consult Date: 10/27/17 Attending physician:: FUNMI ALCANTARA Consult reason:: Left hip pain History of Present Illness Admission Date/PCP: 10/26/17 12:02 DEANN EMERY MD Patient complains of: Left hip pain History of Present Illness: BABAR QUAN is a 31 year old female who just today delivered a healthy baby. She had been complaining of several weeks of groin pain after feeling a pop. She describes the pain to be anterior and medial. She states is difficult to go up and down stairs and difficult to go side to side. Pain with long periods of walking. Denies any numbness or tingling or paresthesias. Denies any previous injuries or fall. Denies any previous surgeries. Describes the pain as sharp and when aggravated could be a 5 out of 5 pain. Past Medical History Cardiac Medical History: Denies: Myocardial Infarction, Hypertension Pulmonary Medical History: Reports: Asthma - inhalers Denies: Bronchitis, Chronic Obstructive Pulmonary Disease (COPD), Pneumonia Neurological Medical History: Denies: Seizures Endocrine Medical History: Denies: Diabetes Mellitus Type 2 Musculoskeltal Medical History: Denies: Arthritis Psychiatric Medical History: Reports: Post Traumatic Stress Disorder Hematology: Denies: Anemia Past Surgical History Past Surgical History: Reports: Cholecystectomy, Orthopedic Surgery - left hand Social History Smoking Status: Current Every Day Smoker Family History Family History: Reviewed & Not Pertinent Parental Family History Reviewed: No Children Family History Reviewed: No Sibling(s) Family History Reviewed.: No Medication/Allergy Home Medications: 57/Iron/Folic/Dss/Dha [Extra-Virt Plus Dha Softgel] 1 each PO DAILY 02/14 Zolpidem Tartrate [Ambien] 10 mg PO PRN PRN MDD 10 08/03/17 Allergies/Adverse Reactions: No Known Allergies Allergy (Verified 08/30/17 13:58) Review of Systems Constitutional: ABSENT: anorexia, chills, headache(s), weakness Eyes: ABSENT: visual disturbances Ears: ABSENT: hearing changes Nose, Mouth, and Throat: ABSENT: headache(s), mouth pain Cardiovascular: ABSENT: chest pain, orthropnea, palpitations Respiratory: ABSENT: cough, hemoptysis Gastrointestinal: ABSENT: dysphagia, nausea, vomiting Musculoskeletal: PRESENT: as per HPI, catching Integumentary: ABSENT: erythema, rash Neurological: ABSENT: focal weakness, frequent falls Psychiatric: ABSENT: hallucinations, homidical ideation, suicidal ideation Endocrine: ABSENT: polyphagia, polyuria Hematologic/Lymphatic: ABSENT: lymphadenopathy Allergic/Immunologic: ABSENT: seasonal rhinorrhea Physical Exam Vital Signs: Temp Pulse Resp BP Pulse Ox 36.7 C 70 18 124/87 H 100 10/27/17 19:44 10/27/17 19:44 10/27/17 19:44 10/27/17 19:44 10/27/17 19:44 Intake & Output 10/26/17 10/27/17 10/28/17 06:59 06:59 06:59 Weight 97.8 kg General appearance: PRESENT: no acute distress, well-nourished Head exam: PRESENT: atraumatic Eye exam: PRESENT: EOMI. ABSENT: nystagmus Ear exam: ABSENT: drainage, normal external ear exam Mouth exam: PRESENT: neck supple Neck exam: ABSENT: lymphadenopathy, tenderness Respiratory exam: PRESENT: symmetrical, unlabored. ABSENT: accessory muscle use , tachypnea Cardiovascular exam: PRESENT: RRR. ABSENT: tachycardia Pulses: PRESENT: normal dorsalis pedis pul Vascular exam: PRESENT: normal capillary refill GI/Abdominal exam: PRESENT: soft. ABSENT: organolmegaly, tenderness Neurological exam: PRESENT: alert, awake, oriented to person, oriented to place , oriented to time, oriented to situation Psychiatric exam: PRESENT: appropriate affect, normal mood Skin exam: PRESENT: intact. ABSENT: abrasion, erythema Adult Front & Back Image: 1 - Patient has tender palpation over the left anterior groin. Pain with logroll when pressing in the anterior groin. Tenderness over the abductor musculature. Intact flexion/external rotation/internal rotation. No tenderness over the greater trochanter. Limb lengths are grossly equal. No audible pop. No palpable pop. Results Laboratory Results: 10/27/17 06:39 10/27/17 06:39 WBC 13.6 H RBC 3.79 Hgb 10.4 L Hct 31.6 L MCV 83 MCH 27.5 MCHC 33.0 RDW 14.1 H Plt Count 240 Impressions: Hip X-Ray 10/27/17 00:00 IMPRESSION: NEGATIVE STUDY OF THE LEFT HIP AND PELVIS. NO EXPLANATION FOR PAIN. Status: Image reviewed by me Assessment & Plan - Diagnosis (1) Groin strain Qualifiers: Encounter type: initial encounter Laterality: left Qualified Code(s): S76.212A - Strain of adductor muscle, fascia and tendon of left thigh, initial encounter Is this a current diagnosis for this admission?: Yes Plan: 31-year-old female status post complaining of left groin/hip pain. Likely strain of the groin. Likely secondary to strain during her including the hormonal changes as well. MRI did not show any occult fractures or obvious muscle tear. Unable to assess the labrum without contrast but this point I suspect more of the groin pull. Patient can take anti-inflammatories and rest. Avoid aggravating maneuvers. Happy to have her follow-up in our office in the next couple weeks.
--- NOTE | 2017-10-27 23:58 | RADIOLOGY REPORT (SQ) ---
EXAM DESCRIPTION: MRI LT LOWER JOINT WITHOUT COMPLETED DATE/TIME: 10/27/2017 7:12 pm REASON FOR STUDY: nondisplaced greater trochanteric hip fracture COMPARISON: None. TECHNIQUE: [employer]th[employer] images acquired and stored on PACS. Multiplanar images to include fat sensitive s equences as T1, fluid sensitive sequences as T2/STIR and gradient echo sequences. Large FOV fat and f luid sensitive sequences include pelvis and opposite hip. LIMITATIONS: None. FINDINGS: BONE CORTEX AND MARROW: No generalized marrow replacement. No occult fracture. No worriso me bone lesions. TARGETED HIP: FEMORAL HEAD: No occult fracture. No osteophytes or subchondral cysts. Normal sphericity of femoral h ead/neck junction. No acetabular dysplasia. No evidence femoroacetabular impingement. No significant effusion. ACETABULUM: No acetabular dysplasia. No subchondral cysts. LABRUM: No loss of cartilage or delamination. Labrum is intact. No paralabral cysts. TROCHANTER: No trochanteric bursal effusion. No edema/fluid at the insertions of the gluteus medius and gluteus minimus. OPPOSITE HIP: Limited evaluation. No worrisome bone lesions. No significant effusion. PELVIS, LOWER LUMBAR SPINE, SACROILIAC JOINTS: PELVIS : No insufficiency/stress fractures. No significant degenerative changes. Sacroiliac joints normal. L SPINE: No significant osteophytes or degenerative changes of the visualized lumbar spine. MUSCLES AND SOFT TISSUES: Adductors and piriformis normal. Abductors and greater trochanteric bursa n ormal without edema or fluid. Iliopsoas bursa without fluid. Hamstring attachments without edema or t ear. PELVIC SOFT TISSUES: No masses or adenopathy. SCIATIC NERVE: Identified, without masses or abnormal signal. OTHER: No other significant finding. IMPRESSION: NO SIGNIFICANT FINDING IN THE HIP. TECHNICAL DOCUMENTATION: JOB ID: [id number] [place]-[id number] 2010 [employer]- All Rights Reserved
[2017-10-28] MEDS: IBUPROFEN 800 MG TABLET PO SCH ×2 (05:53→13:20)
[2017-10-28] MEDS: OXYCODONE-ACETAMINOPHEN 5-325 MG TABLET PO PRN ×2 (08:40→14:42)
[2017-10-28 08:56] VITALS: BP 114/78
[2017-10-28] MEDS: DOCUSATE SODIUM 100 MG CAPSULE PO SCH ×2 (09:53→17:11)
[2017-10-28] MEDS: FERROUS SULFATE 325 MG TABLET PO SCH ×2 (09:53→17:11)
[2017-10-28] MEDS: PRENATAL VITAMIN W DHA CAPSULE PO SCH (09:54)
[2017-10-28] MEDS: FAMOTIDINE 20 MG TABLET PO SCH (09:54)
[2017-10-28] MEDS: SENNOSIDES/DOCUSATE 8.6-50 MG 1 EACH TABLET PO SCH (09:55)
--- NOTE | 2017-10-28 13:33 | PDOC DISCHARGE SUMMARY ---
Final Diagnosis Discharge Date: 10/28/17 - Final Diagnosis (2) Acute blood loss anemia Is this a current diagnosis for this admission?: Yes (3) Hip pain Is this a current diagnosis for this admission?: Yes Discharge Data - Discharge Medication Prescriptions: Ibuprofen [Motrin 800 mg Tablet] 800 mg PO Q8HP PRN #60 tablet PRN Reason: Docusate Sodium [Colace 100 mg Capsule] 100 mg PO BID #60 capsule Ferrous Sulfate [Feosol 325 mg Tablet] 325 mg PO BID #60 tablet Home Medications: 57/Iron/Folic/Dss/Dha [Extra-Virt Plus Dha Softgel] 1 each PO DAILY 02/14 Zolpidem Tartrate [Ambien] 10 mg PO PRN PRN MDD 10 08/03/17 Docusate Sodium [Colace 100 mg Capsule] 100 mg PO BID #60 capsule 10/28/17 Ferrous Sulfate [Feosol 325 mg Tablet] 325 mg PO BID #60 tablet 10/28/17 Ibuprofen [Motrin 800 mg Tablet] 800 mg PO Q8HP PRN #60 tablet 10/28/17 Reason(s) for Admission: PROM Procedures: NST, Ultrasound Intrapartum Procedure(s): Spontaneous Vaginal Delivery - Diagnosis Test Laboratory: Temp Pulse Resp BP Pulse Ox 97.4 F 62 16 114/78 100 10/28/17 07:37 10/28/17 07:37 10/28/17 07:37 10/28/17 07:37 10/28/17 07:37 10/26/17 10/26/17 10/27/17 11:32 12:18 06:39 RBC 4.15 3.79 Hgb 11.3 L 10.4 L Hct 34.7 L 31.6 L Urine Opiates Screen NEGATIVE - Discharge information/Instructions Discharge Activity: Activity As Tolerated, Balance Activity w/Rest, No Lifting Over 10 Pounds, Pelvic Rest, No tub bath, Walk Frequently Discharge Diet: Regular Disposition: HOME, SELF-CARE Follow up with: [facility] in: 4, Weeks
== END 2017-10-28 17:24 | disposition home or self-care (01) | DRG 775 ==
LOC: LC 11:06 → LR 12:02 → 2S 18:25
PROVIDERS: ADMIT Obstetrics & Gynecology Gynecology; ATTEND Obstetrics & Gynecology Gynecology
PROC: 10E0XZZ Delivery of Products of Conception, External Approach (ICD-10-PCS; principal; 2017-10-26)
DX: O69.81X0 Labor and delivery complicated by cord around neck, without compression, not applicable or unspecified (principal); D64.89 Other specified anemias; O48.0 Post-term pregnancy; O99.02 Anemia complicating childbirth; F17.210 Nicotine dependence, cigarettes, uncomplicated; S76.212A Strain of adductor muscle, fascia and tendon of left thigh, initial encounter; F41.8 Other specified anxiety disorders; O99.334 Smoking (tobacco) complicating childbirth; O99.89 Other specified diseases and conditions complicating pregnancy, childbirth and the puerperium; M25.552 Pain in left hip; Z3A.41 41 weeks gestation of pregnancy; Z37.0 Single live birth
CPT/HCPCS: 36415; 80307; 81005; 84112; 85025; 85027; 86592; 86850; 86900; 86901; 86920; 86922; G0480; J2590; J3490

== ENCOUNTER 2018-09-20 04:57 | Inpatient (IN) | payer MEDICAID ==
[2018-09-19 10:41] LABS: ABSOLUTE EOSINOPHILS # (AUTO) 0.1 10^3/uL (0.0-0.6); ABSOLUTE LYMPHOCYTES (AUTO) 1.8 10^3/uL (0.5-4.7); ABSOLUTE MONOCYTES (AUTO) 0.6 10^3/uL (0.1-1.4); ABSOLUTE NEUT (AUTO) 8.7 10^3/uL (1.7-8.2); BASOPHILS % (AUTO) 0.4 % (0-2); EOSINOPHILS % (AUTO) 0.6 % (0-6); LYMPHOCYTES % (AUTO) 15.8 % (13-45); MEAN CORPUSCULAR HEMOGLOBIN 27.2 pg (27.0-33.4); MEAN CORPUSCULAR HGB CONC 33.4 g/dL (32.0-36.0); MEAN CORPUSCULAR VOLUME 82 fl (80-97); MONOCYTES % (AUTO) 5.6 % (3-13); PLATELET COUNT 309 10^3/uL (150-450); RED BLOOD COUNT 4.04 10^6/uL (3.72-5.28); RED CELL DISTRIBUTION WIDTH 15.1 % (11.5-14.0); SEGMENTED NEUTROPHILS % (AUTO) 77.6 % (42-78); TOTAL CELLS COUNTED % (AUTO) 100 %; WHITE BLOOD COUNT 11.2 10^3/uL (4.0-10.5)
[2018-09-19 10:52] LABS: APPEARANCE,URINE CLOUDY; BILIRUBIN,URINE NEGATIVE (NEGATIVE); COLOR,URINE YELLOW; GLUCOSE, URINE NEGATIVE (NEGATIVE); KETONES,URINE NEGATIVE (NEGATIVE); LEUKOCYTE ESTERASE,URINE NEGATIVE (NEGATIVE); NITRITE,URINE NEGATIVE (NEGATIVE); PROTEIN,URINE NEGATIVE (NEGATIVE); URINE SPECIFIC GRAVITY 1.017; UROBILINOGEN,URINE NEGATIVE mg/dL (<2.0)
[2018-09-19 11:01] LABS: URINE AMPHETAMINES SCREEN NEGATIVE; URINE BARBITURATES SCREEN NEGATIVE; URINE COCAINE SCREEN NEGATIVE; URINE MARIJUANA (THC) SCREEN NEGATIVE; URINE METHADONE SCREEN NEGATIVE; URINE PHENCYCLIDINE SCREEN NEGATIVE
[2018-09-19 11:22] LABS: URINE BENZODIAZEPINES SCREEN UNCONFIRMED POSITIVE
[2018-09-20] MEDS ORDERED: LIDOCAINE 0.5% INJ-PF (5 MG/ML) 50 ML SDV SUBCUT PRN (05:00)
[2018-09-20] MEDS ORDERED: LACTATED RINGERS 1000 ML IV PRN ×2 (05:00)
[2018-09-20] MEDS ORDERED: CEFAZOLIN 2 GM/D5W RTU 2 GM/50 ML RTUPB IV PRN (05:00)
[2018-09-20] MEDS ORDERED: BUPIVACAINE HCL/DEX-WATER/PF 15 MG/2 ML AMPULE ONE (07:39)
[2018-09-20] MEDS ORDERED: MIDAZOLAM 2 MG/2 ML INJ ONE (07:39)
[2018-09-20] MEDS ORDERED: EPHEDRINE SULFATE INJ 50 MG/1 ML AMPULE ONE (07:39)
[2018-09-20] MEDS ORDERED: OXYTOCIN 10 UNIT/ML VIAL ONE (07:40)
[2018-09-20] MEDS ORDERED: FENTANYL CITRATE INJ/PF 100 MCG/2 ML AMPUL ONE ×2 (07:40→09:40)
[2018-09-20] MEDS ORDERED: FENTANYL CITRATE INJ/PF 100 MCG/2 ML AMPUL IV PRN ×2 (07:59)
[2018-09-20] MEDS ORDERED: MEPERIDINE HCL/PF INJ 25 MG/1 ML DISP.SYRIN IV PRN (07:59)
[2018-09-20] MEDS ORDERED: MORPHINE SULFATE 10 MG/ML INJ IV PRN (07:59)
[2018-09-20] MEDS ORDERED: PROMETHAZINE HCL INJ 25 MG/1 ML VIAL IV PRN ×3 (07:59→09:11)
[2018-09-20] MEDS ORDERED: ONDANSETRON HCL INJ/PF 4 MG/2 ML SDV IV PRN (07:59)
[2018-09-20] MEDS ORDERED: DIPHENHYDRAMINE HCL 50 MG/ML VIAL IV PRN (07:59)
[2018-09-20] MEDS ORDERED: MORPHINE SULFATE 10 MG/ML INJ IM PRN (09:11)
[2018-09-20] MEDS ORDERED: SIMETHICONE 80 MG TAB.CHEW PO PRN (09:11)
[2018-09-20] MEDS ORDERED: OXYCODONE-ACETAMINOPHEN 5-325 MG TABLET PO PRN (09:11)
[2018-09-20] MEDS ORDERED: RINGERS SOLUTION,LACTATED 1,000 ML IV PRN (09:11)
[2018-09-20] MEDS ORDERED: ACETAMINOPHEN 325 MG TABLET PO PRN (09:11)
[2018-09-20] MEDS ORDERED: DIPH/PERTUSS(ACELL)/TETANUS VAC/PF 0.5 ML SYR (>=10YO) IM PRN (09:11)
[2018-09-20] MEDS ORDERED: OXYTOCIN/NORMAL SALINE 20 UNIT/1,000 ML RTUINJ IV PRN (09:11)
[2018-09-20] MEDS ORDERED: ACETAMINOPHEN 1,000 MG/100 ML RTUPB IV ONE (09:12)
--- NOTE | 2018-09-20 09:17 | Brief Operative Note ---
BRIEF OPERATIVE REPORT DATE OF SURGERY: 09/20/18 TIME OF SURGERY: 08:20 PREOPERATIVE DIAGNOSIS: 1. Intrauterine at 39-0/7 weeks. 2. h/o Shoulder dystocia. 3. GBS Negative. 4. Desires permanent sterilization. 5. Rh +. 6. Rubella Immune POSTOPERATIVE DIAGNOSIS: Same SURGEON: KATHY LO FINDINGS: Normal uterus, tubes and ovaries; Female in a cephalic position COMPLICATIONS: None ESTIMATED BLOOD LOSS: None TISSUE REMOVED OR ALTERED: placenta TECHNICAL PROCEDURE: 1. Primary Section. 2. Bilateral Tubal Ligation with Filshie Clips
--- NOTE | 2018-09-20 09:21 | PDOC DELIVERY SUMMARY ---
Delivery Summary - Maternal Hx : III Hx # Term Pregnancies: 2 DAVID: 09/27/18 Gestational Age: 39 Risk Factors: Other Risk Factors/Complications Other:: history of shoulder dystocia Ruptured Membranes: AROM Time of Rupture: 08:22 Fluids: Clear - Delivery Labor: Not In Labor Presentation: Vertex Heart Rate Monitoring: Done Pre-Operatively Uterine Contraction Monitoring: External Support Person Present: Yes Location: OR : Scheduled Placenta: Within Normal Limits Number of Vessels (Cord): 3 Nuchal Cord: No Delivery of Placenta Date: 09/20/18 Delivery of Placenta Time: 08:25 Estimated Blood Loss: 800 ml - Medications Type of Anesthesia:: Spinal - Assess and Care Baby 1 Female Delivery of Date: 09/20/18 Delivery of Time: 08:24 at 1 minute: 8 at 5 minutes: 9 Preprinted Number On Band: [id number] Skin to Skin: Yes Skin to Skin (Mins): 2 To Nursery At: 08:34 Mode of Transport: Bassinet Delivery Weight: 3,490 Delivery Length: 20 in - Delivery Personnel Retirement Manager: NICKOLAS CROWLEY RN: CASEY WILDER RN MD: KATHY HESTER
[2018-09-20] MEDS: FENTANYL CITRATE INJ/PF 100 MCG/2 ML AMPUL IV PRN ×2 (09:42→10:19)
--- NOTE | 2018-09-20 10:43 | Operative Report ---
Operative Report DATE OF SURGERY: 09/20/18 PREOPERATIVE DIAGNOSIS: 1. Intrauterine at 39-0/7 weeks. 2. h/o Shoulder dystocia. 3. GBS Negative. 4. Desires permanent sterilization. 5. Rh +. 6. Rubella Immune POSTOPERATIVE DIAGNOSIS: Same OPERATION: 1. Primary Section. 2. Bilateral Tubal Ligation with Filshie Clips SURGEON: KATHY LO ANESTHESIA: Spinal TISSUE REMOVED OR ALTERED: placenta ESTIMATED BLOOD LOSS: 800 ml INTRAOPERATIVE FINDINGS: Normal uterus, tubes and ovaries; Female in a cephalic position PROCEDURE: The patient was taken to the operating room where spinal anesthesia was obtained and found to be adequate. She was then prepped and draped in the normal sterile fashion and placed in the dorsal supine position with a leftward tilt. A Pfannenstiel skin incision was then made and carried through to the underlying layers of the fascia with the scalpel. The fascia was incised in the midline and the incision extended laterally with the Rajan scissors. The superior aspect of the fascial incision was then grasped with Mari clamps elevated and the underlying rectus muscles dissected off [bluntly]. Attention was then turned to the inferior aspect of the fascial incision which in a similar fashion was grasped, tented up with Mari clamps, and the rectus muscles dissected off [bluntly and sharply]. The rectus muscles were then in the midline and the peritoneum at the amount identified and entered [bluntly]. The peritoneal incision was then extended superiorly and inferiorly with good visualization of the bladder. The bladder blade was inserted and the vesicouterine peritoneum identified grasped with Dutch pickups and entered sharply with the Metzenbaum scissors. This incision was then extended laterally with the Metzenbaum scissors and a bladder flap created digitally. The bladder blade was then reinserted and the lower uterine segment incised in a transverse fashion with the scalpel. The uterine incision was then extended bluntly and with the bandage scissors. The bladder blade was removed and the 's head was delivered from cephalic presentation atraumatically with the assistance of a vacuum. The nose and mouth were suctioned and the cord doubly clamped and cut. And the was handed off to waiting chairman & ceo. The placenta was then delivered spontaneously and the uterus was cleared of all clots and debris. The uterine incision was then repaired with 1-0 Vicryl in a running locked fashion. A second layer of 0 chromic was used to obtain hemostasis via imbrication of the initial layer. The bladder flap was then repaired with 3-0 Vicryl in a running fashion. Attention was then turned to her permanent sterilization. The right fallopian tube was identified and grasped with a Tresa clamp. The midportion of the tube was then identified and a Filshie clip was placed. Hemostasis was noted. The same procedure was performed on the left fallopian tube and hemostasis was also noted. Attention was then returned to the uterus, where a piece of Interceed was placed overlying the uterine incision, as well has vertically on the anterior surface of the uterus, to prevent adhesions. The gutters were cleared of all clots and debris. All operative sites were noted to be hemostatic. The fascia was reapproximated with 0 Vicryl in a running fashion from each lateral edge to the midline. The subcutaneous fat layer was then closed in an interrupted fashion with 3-0 Vicryl. Stasis was noted. The skin was closed with 4-0 Monocryl in a running, subcuticular fashion. The patient tolerated the procedures well. Sponge, lap, needle and instrument counts are correct x 2. 2 g of Ancef were given prior to skin incision. The patient was taken to the recovery area awake and in stable condition.
[2018-09-20] MEDS ORDERED: OXYTOCIN/NORMAL SALINE 20 UNIT/1,000 ML RTUINJ ONE (11:14)
[2018-09-20] MEDS ORDERED: HYDROMORPHONE HCL INJ/PF 2 MG/ML AMPULE ONE (11:22)
[2018-09-20] MEDS ORDERED: HYDROMORPHONE HCL INJ/PF 2 MG/ML AMPULE IV PRN (11:31)
[2018-09-20] MEDS: DOCUSATE SODIUM 100 MG CAPSULE PO SCH ×2 (11:49→18:11)
[2018-09-20] MEDS: PRENATAL VITAMIN W DHA CAPSULE PO SCH (11:50)
[2018-09-20] MEDS: KETOROLAC TROMETHAMINE INJ/PF 30 MG/1 ML SDV IV SCH ×2 (13:13→21:43)
[2018-09-20] MEDS ORDERED: ONDANSETRON HCL INJ/PF 4 MG/2 ML SDV ONE (13:30)
[2018-09-20] MEDS ORDERED: METOCLOPRAMIDE HCL INJ/PF 10 MG/2 ML SDV ONE (13:30)
[2018-09-20] MEDS ORDERED: DEXAMETHASONE SOD PHOSPHATE INJ 4 MG/1 ML VIAL ONE (13:30)
[2018-09-20] MEDS ORDERED: KETOROLAC TROMETHAMINE 60 MG/2 ML SDV ONE (13:30)
[2018-09-20] MEDS ORDERED: PHENYLEPHRINE HCL INJ/PF 10 MG/1 ML SDV ONE (13:30)
[2018-09-20] MEDS ORDERED: GLYCOPYRROLATE 1 MG/5 ML SYRINGE ONE (13:30)
[2018-09-20] MEDS: OXYCODONE-ACETAMINOPHEN 5-325 MG TABLET PO PRN ×2 (14:12→19:40)
[2018-09-20] MEDS: HYDROMORPHONE HCL INJ/PF 2 MG/ML AMPULE IV PRN ×2 (16:11→22:29)
[2018-09-21] MEDS: OXYCODONE-ACETAMINOPHEN 5-325 MG TABLET PO PRN ×6 (01:57→23:37)
[2018-09-21] MEDS: IBUPROFEN 800 MG TABLET PO SCH ×4 (05:34→23:36)
[2018-09-21 06:05] LABS: HEMATOCRIT 26.5 % (36.0-47.0); MEAN CORPUSCULAR HEMOGLOBIN 27.6 pg (27.0-33.4); MEAN CORPUSCULAR HGB CONC 33.4 g/dL (32.0-36.0); MEAN CORPUSCULAR VOLUME 83 fl (80-97); PLATELET COUNT 252 10^3/uL (150-450); RED BLOOD COUNT 3.22 10^6/uL (3.72-5.28); RED CELL DISTRIBUTION WIDTH 15.4 % (11.5-14.0); WHITE BLOOD COUNT 15.4 10^3/uL (4.0-10.5)
[2018-09-21 06:13] LABS: HEMOGLOBIN 8.9 g/dL (12.0-15.5)
--- NOTE | 2018-09-21 09:38 | PDOC PROGRESS REPORT ---
Subjective-OB Progress Note for:: 09/21/18 Subjective: reports bleeding slowing, pain controlled with current meds, no needs expressed Physical Exam (OB) Vital Signs: Temp Pulse Resp BP Pulse Ox 97.6 F 74 18 111/61 98 09/21/18 07:37 09/21/18 07:37 09/21/18 07:37 09/21/18 07:37 09/21/18 07:37 Intake & Output 09/20/18 09/21/18 09/22/18 06:59 06:59 06:59 Intake Total 1971 Output Total 1770 Balance 201 Weight 109.1 kg 109.1 kg - Dressing Removed: No - opsite D&I, no redness, drainage or swelling noted Incision: Well Approximated - clean, dry, intact - Bilateral Tubal Ligation Dressing Removed: No - honeycomb dressing Site: Dressing - Abdomen Description: Soft, Round Hernia Present: No Fundal Description: Firm, Midline Fundal Height: u/u - u/2 - Abdominal Distension: No distension Tenderness: Nontender - Extremities Lower extremities: Dunia's sign - neg Calf: Normal, Nontender Objective-Diagnostic Laboratory: 09/21/18 05:47 09/21/18 05:47 WBC 15.4 H RBC 3.22 L Hgb 8.9 L D Hct 26.5 L MCV 83 MCH 27.6 MCHC 33.4 RDW 15.4 H Plt Count 252 Assessment and Plan(PN) - Assessment and Plan (1) delivery delivered Is this a current diagnosis for this admission?: Yes (2) History of shoulder dystocia in prior Is this a current diagnosis for this admission?: Yes (3) Sterilization Is this a current diagnosis for this admission?: Yes - Time Spent with Patient Time with patient: Less than 15 minutes Medications reviewed and adjusted accordingly: Yes - Disposition Anticipated Discharge: Home Within: within 24 hours
[2018-09-21] MEDS: DOCUSATE SODIUM 100 MG CAPSULE PO SCH ×2 (10:29→17:39)
[2018-09-21] MEDS: PRENATAL VITAMIN W DHA CAPSULE PO SCH (10:29)
[2018-09-21] MEDS: FAMOTIDINE 20 MG TABLET PO SCH ×2 (11:01→17:39)
[2018-09-21] MEDS ORDERED: IBUPROFEN 800 MG TABLET PO SCH (12:00)
[2018-09-22] MEDS: OXYCODONE-ACETAMINOPHEN 5-325 MG TABLET PO PRN ×2 (03:38→08:44)
[2018-09-22] MEDS: IBUPROFEN 800 MG TABLET PO SCH ×2 (06:17→11:45)
[2018-09-22] MEDS: DOCUSATE SODIUM 100 MG CAPSULE PO SCH (09:55)
[2018-09-22] MEDS: FAMOTIDINE 20 MG TABLET PO SCH (09:55)
[2018-09-22] MEDS: PRENATAL VITAMIN W DHA CAPSULE PO SCH (09:55)
--- NOTE | 2018-09-22 10:27 | PDOC DISCHARGE SUMMARY ---
Final Diagnosis Discharge Date: 09/22/18 - Final Diagnosis (1) delivery delivered Is this a current diagnosis for this admission?: Yes (2) History of shoulder dystocia in prior Is this a current diagnosis for this admission?: Yes (3) Sterilization Is this a current diagnosis for this admission?: Yes Discharge Data - Discharge Medication Prescriptions: Ibuprofen [Motrin 800 mg Tablet] 800 mg PO Q8HP PRN #90 tablet PRN Reason: Oxycodone HCl/Acetaminophen [Percocet 5-325 mg Tablet] 1 tab PO Q4HP PRN #30 tablet PRN Reason: Home Medications: 57/Iron/Folic/Dss/Dha [Extra-Virt Plus Dha Softgel] 1 each PO DAILY 02/14 Zolpidem Tartrate [Ambien] 10 mg PO PRN PRN MDD 10 08/03/17 Alprazolam [Xanax] 2 mg PO PRN PRN 09/19/18 Ibuprofen [Motrin 800 mg Tablet] 800 mg PO Q8HP PRN #90 tablet 09/22/18 Oxycodone HCl/Acetaminophen [Percocet 5-325 mg Tablet] 1 tab PO Q4HP PRN #30 tablet 09/22/18 Reason(s) for Admission: Ceasarean Section-Primary Procedures: NST Intrapartum Procedure(s): : Low Cervical, Transverse - Diagnosis Test Laboratory: Temp Pulse Resp BP Pulse Ox 97.9 F 77 16 103/82 97 09/22/18 07:19 09/22/18 07:19 09/22/18 07:19 09/22/18 07:19 09/22/18 07:19 09/19/18 09/19/18 09/21/18 10:00 10:05 05:47 RBC 4.04 3.22 L Hgb 11.0 L 8.9 L D Hct 33.0 L 26.5 L Urine Opiates Screen NEGATIVE - Discharge information/Instructions Discharge Activity: Balance Activity w/Rest, No Lifting Over 10 Pounds, No Lifting/Push/Pulling, Pelvic Rest, No tub bath Discharge Diet: Regular Disposition: HOME, SELF-CARE Follow up with: [facility] in: 1, Weeks
[2018-09-22 11:55] VITALS: BP 118/61
== END 2018-09-22 13:40 | disposition home or self-care (01) | DRG 785 ==
LOC: 2S 04:57
PROVIDERS: ADMIT Obstetrics & Gynecology; ATTEND Obstetrics & Gynecology
PROC: 0UL70ZZ Occlusion of Bilateral Fallopian Tubes, Open Approach (ICD-10-PCS; 2018-09-20)
PROC: 4A1HXCZ Monitoring of Products of Conception, Cardiac Rate, External Approach (ICD-10-PCS; 2018-09-20)
PROC: 10D00Z1 Extraction of Products of Conception, Low, Open Approach (ICD-10-PCS; principal; 2018-09-20 07:45)
DX: O82 Encounter for cesarean delivery without indication (principal); Z30.2 Encounter for sterilization; Z87.59 Personal history of other complications of pregnancy, childbirth and the puerperium; Z3A.39 39 weeks gestation of pregnancy
CPT/HCPCS: 1961; 36415; 59025; 80307; 81001; 85025; 85027; 86850; 86870; 86900; 86901; 86920; 86922; 94799; C1765; J0131; J1100; J1170; J1885; J2250; J2370; J2405; J2590; J2765; J3010; J3490; J7120

== ENCOUNTER 2020-09-19 13:05 | Emergency (ER) | payer MEDICAID ==
[2020-09-19] MEDS ORDERED: IBUPROFEN 600 MG TABLET PO ONE (13:30)
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
--- NOTE | 2020-09-19 14:04 | RADIOLOGY REPORT (SQ) ---
EXAM DESCRIPTION: HAND RIGHT 3 VIEWS IMAGES COMPLETED DATE/TIME: 09/19/2020 1:53 pm REASON FOR STUDY: fall; wrist/hand pain COMPARISON: 02/24/2016 EXAM PARAMETERS: NUMBER OF VIEWS: Three views. TECHNIQUE: AP, lateral and oblique radiographic images acquired of the right hand. LIMITATIONS: None. FINDINGS: MINERALIZATION: Normal. BONES: No acute fracture or dislocation. No worrisome bone lesions. JOINTS: No effusions. SOFT TISSUES: No soft tissue swelling. No foreign body. OTHER: No other significant finding. IMPRESSION: NEGATIVE STUDY OF THE RIGHT HAND. NO RADIOGRAPHIC EVIDENCE OF ACUTE INJURY. TECHNICAL DOCUMENTATION: JOB ID: [id number] 2010 [employer]- All Rights Reserved Reading location - IP/workstation name: [email or web address]
--- NOTE | 2020-09-19 14:04 | RADIOLOGY REPORT (SQ) ---
EXAM DESCRIPTION: WRIST RIGHT 3 VIEWS IMAGES COMPLETED DATE/TIME: 09/19/2020 1:53 pm REASON FOR STUDY: fall; wrist/hand pain COMPARISON: None. NUMBER OF VIEWS: Three views. TECHNIQUE: AP, lateral, and oblique radiographic images acquired of the right wrist. LIMITATIONS: None. FINDINGS: MINERALIZATION: Normal. BONES: No acute fracture or dislocation. No worrisome bone lesions. Normal alignment. SOFT TISSUES: No soft tissue swelling. No foreign body. OTHER: No other significant finding. IMPRESSION: NEGATIVE STUDY OF THE RIGHT WRIST. NO RADIOGRAPHIC EVIDENCE OF ACUTE INJURY. TECHNICAL DOCUMENTATION: JOB ID: [id number] 2010 [employer]- All Rights Reserved Reading location - IP/workstation name: [email or web address]
[2020-09-19 14:44] VITALS: BP 121/74
== END 2020-09-19 14:43 | disposition home or self-care (01) ==
LOC: ER 13:05
DX: M25.531 Pain in right wrist (principal); M79.641 Pain in right hand; W19.XXXA Unspecified fall, initial encounter
CPT/HCPCS: 99283; 73130; 73110; J3490